=== PATIENT | female | born 1965 | race Caucasian/White ===

== ENCOUNTER 2017-10-04 10:38 | Emergency (ER) | payer SELFPAY ==
[~2017-10-04] VITALS: Ht 165.1 cm; Wt 59.9 kg
--- NOTE | ~2017-10-04 | EKG ---
[place], [place] ELECTROCARDIOGRAM REPORT NAME: JAMILA JOSE UNIT #: [id number] ROOM: DOCTOR: JING INGRAM MD BIRTHDATE: [birth year] DOS: 10/04/2017 TIME: 1057 hours. FINDINGS: 1. Normal sinus rhythm at 71 beats per minute. 2. The tracing is normal. 3. No previous tracing is available for comparison. JING INGRAM MD CM:EKGRPT:ELECTROCARDIOGRAM REPORT [id number] JING INGRAM MD
[2017-10-04 11:05] LABS: BASO % 0.6 % (0.0-1.0); EOS # 0.1 10*3/uL (0.0-0.4); EOS % 1.6 % (1.0-4.0); HEMATOCRIT 38.2 % (37.0-47.0); HEMOGLOBIN 13.2 g/dl (12.0-16.0); LYMPH # 2.2 10*3/uL (1.3-4.4); LYMPH % 34.3 % (27.0-41.0); MEAN CELL VOLUME 94.1 fl (81.0-99.0); MEAN CORPUSCULAR HGB 32.5 pg (27.0-31.0); MEAN CORPUSCULAR HGB CONC 34.6 g/dl (33.0-37.0); MEAN PLATELET VOLUME 9.3 fl (9.6-12.3); MONO # 0.6 10*3/uL (0.1-1.0); NEUT # 3.5 10*3/uL (2.3-7.9); NEUT % 54.3 % (47.0-73.0); PLATELET COUNT AUTOMATED 179 10*3/uL (130-400); RED BLOOD COUNT 4.06 10*6/uL (4.10-5.10); RED CELL DISTRI WIDTH 12.4 % (0-14.5); WHITE BLOOD COUNT 6.4 10*3/uL (4.8-10.8)
[2017-10-04] MEDS ORDERED: TRAMADOL HCL50 MG PO (11:18)
[2017-10-04] MEDS ORDERED: OMEPRAZOLE20 M2 PO (11:18)
[2017-10-04] MEDS ORDERED: IBU800 MG PO (11:19)
[2017-10-04 11:22] LABS: ALKALINE PHOSPHATASE 50 U/L (45-117); BUN 14 mg/dl (7-24); CHLORIDE 109 mmol/L (98-107); CREATININE 0.83 mg/dL (0.55-1.02); POTASSIUM 3.3 mmol/L (3.5-5.1); SGOT/AST 21 IU/L (3-35); SGPT/ALT 26 U/L (12-78); SODIUM 143 mmol/L (136-145); TOTAL PROTEIN 7.5 gm/dL (6.4-8.2)
[2017-10-04 11:29] LABS: ETHYL ALCOHOL < 3.0 mg/dl (<3); TROPONIN I < 0.015 ng/ml (<0.045)
[2017-10-04] MEDS ORDERED: GOOD NEIGHBOR M25 M1 PO (11:52)
== END 2017-10-04 12:08 | disposition home or self-care (01) ==
LOC: ED 10:38
PROVIDERS: Emergency Medicine
DX: H81.12 Benign paroxysmal vertigo, left ear (principal); E87.6 Hypokalemia; Z79.899 Other long term (current) drug therapy; Z88.5 Allergy status to narcotic agent

== ENCOUNTER 2017-12-27 20:27 | Emergency (ER) | payer SELFPAY ==
[~2017-12-27] VITALS: Ht 165.1 cm; Wt 59.0 kg
--- NOTE | ~2017-12-27 | EKG ---
[place], [place] ELECTROCARDIOGRAM REPORT NAME: JAMILA JOSE UNIT #: [id number] ROOM: DOCTOR: EPIPHANY DRAFT REPORT BIRTHDATE: [birth year] [facility] Test Date: 2017-12-27 Test Time: 21:36:41 Pat Name: JAMILA JOSE Department: ER Room: 1 Gender: F Beauty Director: Vicky Jaime : 1965 Requested By: LINDSAY PAZ Order Number: [id number] Reading MD: Micki Vyas MD Measurements Intervals [place] Rate: 61 P: 41 [place]: 163 QRS: 59 QRSD: 79 T: 39 QT: 453 QTc: 457 Interpretive Statements Sinus rhythm Noprmal ECG Electronically Signed On 12-31-2017 12:17:33 PDT by Micki Vyas MD CM:EKGRPT:ELECTROCARDIOGRAM REPORT 1217 LINDSAY PAZ MD EPIPHANY DRAFT REPORT LINDSAY PAZ MD
[~2017-12-27 20:27] MED LIST: GOOD NEIGHBOR M25 M1 PO; IBU800 MG PO; OMEPRAZOLE20 M2 PO; TRAMADOL HCL50 MG PO
[2017-12-27 21:35] LABS: BILIRUBIN NEGATIVE (NEGATIVE); BLOOD TRACE-INTACT (NEGATIVE); CLARITY CLEAR (CLEAR); COLOR YELLOW (YELLOW); GLUCOSE NEGATIVE (NEGATIVE); KETONE NEGATIVE (NEGATIVE); LEUKO ESTERASE 2+ (NEGATIVE); NITRITE NEGATIVE (NEGATIVE); PH 7.5 (5.0-9.0); UROBILINOGEN 0.2 E.U./dl (0.2-1.0)
[2017-12-27 21:40] LABS: BACTERIA TRACE
[2017-12-27 21:47] LABS: BASO % 0.4 % (0.0-1.0); EOS # 0.1 10*3/uL (0.0-0.4); EOS % 1.4 % (1.0-4.0); HEMATOCRIT 35.6 % (37.0-47.0); HEMOGLOBIN 12.2 g/dl (12.0-16.0); LYMPH # 2.5 10*3/uL (1.3-4.4); LYMPH % 35.5 % (27.0-41.0); MEAN CELL VOLUME 94.7 fl (81.0-99.0); MEAN CORPUSCULAR HGB 32.4 pg (27.0-31.0); MEAN CORPUSCULAR HGB CONC 34.3 g/dl (33.0-37.0); MEAN PLATELET VOLUME 9.2 fl (9.6-12.3); MONO # 0.5 10*3/uL (0.1-1.0); MONO % 6.9 % (3.0-9.0); NEUT # 3.9 10*3/uL (2.3-7.9); NEUT % 55.5 % (47.0-73.0); PLATELET COUNT AUTOMATED 179 10*3/uL (130-400); RED BLOOD COUNT 3.76 10*6/uL (4.10-5.10); RED CELL DISTRI WIDTH 11.9 % (0-14.5); WHITE BLOOD COUNT 7.1 10*3/uL (4.8-10.8)
[2017-12-27 22:03] LABS: ALBUMIN 3.7 gm/dl (3.1-4.5); ALKALINE PHOSPHATASE 39 U/L (45-117); BUN 12 mg/dl (7-24); CHLORIDE 112 mmol/L (98-107); CREATININE 0.77 mg/dL (0.55-1.02); LIPASE 217 U/L (73-393); POTASSIUM 3.4 mmol/L (3.5-5.1); SGOT/AST 19 IU/L (3-35); SGPT/ALT 24 U/L (12-78); SODIUM 144 mmol/L (136-145); TOTAL PROTEIN 6.6 gm/dL (6.4-8.2)
[2017-12-27 22:07] LABS: TROPONIN I < 0.015 ng/ml (<0.045)
[2017-12-27] MEDS ORDERED: PROTONIX40 MG PO (22:33)
[2017-12-28] MEDS ORDERED: DICYCLOMINE HCL10 MG PO (21:45)
== END 2017-12-27 23:39 | disposition home or self-care (01) ==
LOC: ED 20:27
PROVIDERS: Emergency Medicine Emergency Medical Services
DX: R10.30 Lower abdominal pain, unspecified (principal); R06.02 Shortness of breath; R07.9 Chest pain, unspecified; Z88.6 Allergy status to analgesic agent

== ENCOUNTER 2017-12-28 17:54 | Emergency (ER) | payer SELFPAY ==
[~2017-12-28] VITALS: Ht 165.1 cm; Wt 60.3 kg
--- NOTE | ~2017-12-28 | EKG ---
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
[~2017-12-28 17:54] MED LIST changes: +PROTONIX40 MG PO
[2017-12-28 18:46] LABS: BASO % 0.7 % (0.0-1.0); EOS # 0.2 10*3/uL (0.0-0.4); EOS % 2.8 % (1.0-4.0); HEMATOCRIT 36.9 % (37.0-47.0); HEMOGLOBIN 12.6 g/dl (12.0-16.0); LYMPH # 2.2 10*3/uL (1.3-4.4); LYMPH % 37.8 % (27.0-41.0); MEAN CELL VOLUME 95.3 fl (81.0-99.0); MEAN CORPUSCULAR HGB 32.6 pg (27.0-31.0); MEAN CORPUSCULAR HGB CONC 34.1 g/dl (33.0-37.0); MEAN PLATELET VOLUME 9.3 fl (9.6-12.3); MONO # 0.5 10*3/uL (0.1-1.0); MONO % 8.7 % (3.0-9.0); NEUT # 2.9 10*3/uL (2.3-7.9); NEUT % 49.8 % (47.0-73.0); PLATELET COUNT AUTOMATED 181 10*3/uL (130-400); RED BLOOD COUNT 3.87 10*6/uL (4.10-5.10); WHITE BLOOD COUNT 5.7 10*3/uL (4.8-10.8)
[2017-12-28 19:02] LABS: ALBUMIN 3.8 gm/dl (3.1-4.5); ALKALINE PHOSPHATASE 40 U/L (45-117); BUN 10 mg/dl (7-24); CHLORIDE 110 mmol/L (98-107); CREATININE 0.76 mg/dL (0.55-1.02); LIPASE 193 U/L (73-393); POTASSIUM 3.4 mmol/L (3.5-5.1); SGOT/AST 24 IU/L (3-35); SGPT/ALT 26 U/L (12-78); SODIUM 144 mmol/L (136-145)
[2017-12-28 19:03] LABS: TROPONIN I < 0.015 ng/ml (<0.045)
[2017-12-28] MEDS ORDERED: DICYCLOMINE HCL10 MG PO (21:45)
== END 2017-12-28 21:53 | disposition home or self-care (01) ==
LOC: ED 17:54
PROVIDERS: Physician Assistant
DX: R10.13 Epigastric pain (principal); Z79.899 Other long term (current) drug therapy; Z88.5 Allergy status to narcotic agent

== ENCOUNTER → 2018-01-05 | Day surgery (SDC) | payer SELFPAY ==
[~2018-01-05] VITALS: Ht 165.1 cm; Wt 60.3 kg
[~2018-01-05] MED LIST changes: +DICYCLOMINE HCL10 MG PO
--- NOTE | ~2018-01-05 | O ---
[place], [place] OPERATIVE NOTE [id number] UNIT #: [id number] ROOM: DOCTOR: BOLIVAR PENALOZASIM BIRTHDATE: [birth year] DOS: 01/05/2018 GASTROENDOSCOPIC REPORT HISTORY OF PRESENT ILLNESS: This is a 52-year-old patient who presented with chief complaint of epigastric distress despite the fact that she has been on omeprazole 20 mg daily and subsequently has been switched to 40 mg of Protonix, note to no avail. She has been visiting Emergency Room with epigastric pain. She has had last week a CT scan of the abdomen and pelvis with IV contrast with no specific findings. ALLERGIES: CODEINE. FAMILY HISTORY: Noncontributory. PAST SURGICAL HISTORY: Appendectomy and hysterectomy. SOCIAL HISTORY: Stopped smoking 4 years ago. Stopped drinking alcohol 2 years ago. In past she has had pancreatitis. PROCEDURE: Today's procedure part of investigation is panendoscopy plus biopsy. PREMEDICATION: Propofol. SCOPE: Olympus forward-viewing gastroscope Q10 video. REPORT: After putting the patient in left lateral position and application of lubricant to the scope, the scope was introduced; thereafter, under direct visualization, I advanced through the length of esophagus without difficulty. Esophagus, cervical, thoracic distal carefully examined 1.5 cm hiatal hernia was noticed. Gastric pouch was entered. Mild gastritis was noticed. Duodenal bulb, second and third part within normal limits. Antral biopsy obtained. GI reflection of the scope confirms a small hiatal hernia. The patient was extubated, tolerated the procedure well. IMPRESSION: Small hiatal hernia, 1.5 cm, gastritis. PLAN AND DISCUSSION: The patient has had biopsy of antrum to rule out H. pylori and should it be negative, we are going to continue with the present PPI therapy. Omeprazole 20 mg or supply of Protonix that she has 20 mg daily would be enough. However, she is going to use antireflux measures Gaviscon Extra Strength 1 at bedtime and 1 p.r.n. for epigastric distress chew. On the other hand, I am going to organize a HIDA scan for her in case this is biliary dyskinesia. Workup in progress. Otherwise, CT scan of the abdomen and pelvis has been negative and repeated visits to Emergency Room has been unremarkable findings. [place], [place] OPERATIVE NOTE NAME: JAMILA JOSE UNIT #: [id number] ROOM: DOCTOR: BOLIVAR PENALOZA,SIM BIRTHDATE: [birth year] SIM LUTZ MD CM:OPRECORD:OPERATIVE NOTE SIM LUTZ MD 01/05/1846 interface
[2018-01-05 07:42] VITALS: BP 138/85
[2018-01-05 08:30] VITALS: BP 107/60
[2018-01-05 08:45] VITALS: BP 118/72
[2018-01-05 09:00] VITALS: BP 119/77
== END | disposition home or self-care (01) ==
LOC: SDC 01-02 13:15
DX: K29.50 Unspecified chronic gastritis without bleeding (principal); K44.9 Diaphragmatic hernia without obstruction or gangrene; Z88.5 Allergy status to narcotic agent; Z87.891 Personal history of nicotine dependence; Z90.49 Acquired absence of other specified parts of digestive tract; Z90.710 Acquired absence of both cervix and uterus; Z98.890 Other specified postprocedural states

== ENCOUNTER → 2018-01-18 | Outpatient (CLI) | payer SELFPAY | END | disposition home or self-care (01) | LOC: US 07:18 | DX: R10.84 Generalized abdominal pain (principal) ==

== ENCOUNTER → 2018-01-22 | Outpatient (CLI) | payer SELFPAY | END | disposition home or self-care (01) | LOC: NM 03:25 | DX: K30 Functional dyspepsia (principal) ==